=== PATIENT | female | born 1940 | race Caucasian/White ===

== ENCOUNTER 2024-07-25 07:41 | Emergency (ER) | payer OTHER, SELFPAY ==
[2024-07-25] VITALS (16 sets, daily range): BP systolic 139–187; BP diastolic 56–104; PULSE 53–72; RESP 12–22; TEMP 36.7; O2SAT 96–100
--- NOTE | ~2024-07-25 | XR_ITS ---
CHEST RADIOGRAPH CLINICAL HISTORY: cva? . COMPARISON: None available TECHNIQUE: Single portable view of the chest. FINDINGS The cardiomediastinal silhouette is unremarkable. The lungs are clear. Visualized osseous structures and soft tissues are unremarkable. IMPRESSION: No focal infiltrate or effusion. Reviewed, dictated and finalized at location A. [facility]
--- NOTE | ~2024-07-25 | CT_ITS ---
CTA brain carotid Ordering provider: Justin Engle MD History: . right sided weakness . Comparison: None. Technique: CT angiogram head and neck was performed following timed intravenous injection of contrast . Thin slice axial images and reformatted coronal images were obtained. Three dimensional reformatted images of the brain were also obtained using a [employer] workstation. DLP: 854 mGy-cm FINDINGS: HEAD: --ANTERIOR AND MIDDLE CEREBRAL ARTERIES AND BRANCHES: Normal caliber and contour. --INTERNAL CAROTID ARTERIES: Mild atheromatous disease but no significant stenosis. No occlusion. --BASILAR ARTERY AND BRANCHES: Normal caliber and contour. No significant atheromatous disease. 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 --ANEURYSM: None visualized. --BRAIN: Please refer to report of CT head performed the same day. --BONES AND SUPERFICIAL SOFT TISSUES: Please refer to report of CT head performed the same day. --PARANASAL SINUSES AND MASTOIDS: Please refer to report of CT head done the same day. NECK: --RIGHT CERVICAL CAROTID SYSTEM: Mild atheromatous disease of the carotid bulb and proximal internal carotid artery without significant stenosis. Percent stenosis per NASCET criteria is 0% No carotid d issection. --LEFT CERVICAL CAROTID SYSTEM: Mild atheromatous disease of the carotid bulb and proximal internal c arotid artery without significant stenosis. Percent stenosis per NASCET criteria is 0% No carotid di ssection. --VERTEBRAL ARTERIES: Normal caliber and contour. --VISUALIZED AORTIC ARCH AND BRANCHING VESSELS: Mild atheromatous disease but no significant stenosis . --SOFT TISSUES: Unremarkable. --CERVICAL SPINE: Age appropriate degenerative changes. IMPRESSION: 1. Normal CTA head and neck. Percent stenosis per NASCET criteria is 0%. 2. No large vessel occlusion. Reviewed, dictated and finalized at location A. [employer] DETECTIVE
--- NOTE | ~2024-07-25 | CT_ITS ---
History Right sided weakness PROCEDURE: CT head without contrast. COMPARISON: None TECHNIQUE: Axial imaging of the head performed from the skull base to the vertex without IV contrast. Sagittal a nd coronal reformations obtained. DLP: 605 mGy-cm FINDINGS: The ventricles are enlarged. The dilatation of the ventricles is proportional to the degree of sulcal prominence, not uncommon in the senescent brain. 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 There is no mass, mass effect or midline shift. There is no abnormal extra-axial fluid collection or intracranial hemorrhage. Visualized paranasal sinuses are clear. The mastoid air cells are well aerated. No acute displaced fractures within the overlying cranium. Impression: No acute intracranial hemorrhage or suspicious mass effect. Reviewed, dictated and finalized at location A. [employer] Impression: No acute intracranial hemorrhage or suspicious mass effect.
--- OUTSIDE RECORDS SUMMARY | 2024-07-25 07:44 | XMS_ITS | Continuity of Care Document ---
Author Organization [facility] Address [address] [place] [address] Phone Care Team Providers Care Project Associate Name Role Phone Peng Marks Unavailable Unavailable Procedures Procedure Date Eye Exam & Treatment Refraction Eye Exam & Treatment No Script Refraction Eye Exam & Treatment Refraction Eye Exam & Treatment Visual Functional Status Assessed Refraction Advance Directives Directive Yes / No Effective Date File Name No Information Encounters Encounter Description Practice Location Reason(s) For Visit Diagnoses Date Provider Providers Copied on Encounter [facility], [address] [place] [address] [address], [place], [place], [id number], tel:[phone] [facility] No Information Oct-0 8-201 0 Selina Khoury. [address] , [address], [place], [place], [facility], . tel:[phone] [facility], [id number] [place] [address] [address], [place], [place], [id number], [place] tel:[phone] [facility] No Information Feb-3 0-200 9 Selina Khoury. [address], [place], [place], [facility], . tel:[phone] [facility], [address], [place], [place], [id number], tel:[phone] [facility] [address] No Information 7200 8 Sarthakbruna Edjoel. [address] [facility] , [address], [place], [address], [place]. tel:[phone] [facility], [address], [place], [place], [id number], [place] tel:[phone] [facility] No Information 200 7 Selina Khoury. [address] [facility] , [address], [place], [address], [place]. tel:[phone] Family History Family Member Type Diagnosis Age At Onset No Information Payers Payer name Insurance type Covered libertarian ID Authoriza ticiro(s) Medicare [place] CI [id number] [facility] Medicare [facility] CI [id number] Social History Type Description Quantity Date Captured Comments Sex Female Smoking Status No Information Chief Complaint And Reason For Visit No Information Reason For Referral Reason For Referral No Information History Of Present Illness Encounter Date Complaint History Of Prese nt Illness No Information Functional Status Date Functional Assessmen t No Information Instructions Date Instruction Additional Infor mation No Information Assessments Type Assessment Date No Information Patient Care Teams Name Effective Dates (start - stop) Status Members No Information
--- OUTSIDE RECORDS SUMMARY | 2024-07-25 07:44 | XMS_ITS | Continuity of Care Document ---
Author Organization [facility] Address [address] [place] [address] Phone Care Team Providers Care Diamond Cleaver Name Role Phone Stanislaw Guzmán MD Unavailable Unavailable Allergies, Adverse Reactions, Alerts Substance Reaction Status Criticality primidone Active No Information Medications Medication Instructions Dosage Effective Dates (start - stop) Status Comments Propranolol HCl ER 160 MG Oral Capsule Extended Release 24 Hour Take 1 capsule by mouth once daily - Active Vitamin D3 25 mcg (1,000 unit) tablet take 1 tablet by oral route every day 1 tablet - Active propranolol ER 160 mg capsule,24 hr,extended release take 1 capsule by oral route every day 160 MG - No Longer Active Procedures Procedure Date FALL RISK ASSESSMENT DOC'D PRES/ABSN URINE INCON ASSESS Pt inelig neg scrn depres PPPS, subseq visit BODY MASS INDEX DOCD SYST BP LT 130 MM HG DIAST BP 80-89 MM HG FALL RISK ASSESSMENT DOC'D PRES/ABSN URINE INCON ASSESS Pt inelig neg scrn depres COMPREHEN METABOLIC PANEL CMP VITAMIN D, 25-HYDROXY ROUTINE VENIPUNCTURE PARATHYROID HORMONE (PTH) PPPS, subseq visit BODY MASS INDEX DOCD SYST BP GE 130 - 139MM HG DIAST BP 80-89 MM HG FALL RISK ASSESSMENT DOC'D PRES/ABSN URINE INCON ASSESS COMPREHEN METABOLIC PANEL CMP 2 VITAMIN D, 25-HYDROXY ROUTINE VENIPUNCTURE PPPS, subseq visit BODY MASS INDEX DOCD SYST BP GE 130 - 139MM HG DIAST BP 80-89 MM HG Pt inelig neg scrn depres FALL RISK ASSESSMENT DOC'D PRES/ABSN URINE INCON ASSESS Pt inelig neg scrn depres PPPS, subseq visit BODY MASS INDEX DOCD SYST BP GE 130 - 139MM HG DIAST BP < 80 MM HG FALL RISK ASSESSMENT DOC'D PRES/ABSN URINE INCON ASSESS CBC, INC PLATELETS AND DIFFERENTIAL COMPREHEN METABOLIC PANEL CMP 0 THYROID STIMULATION HORMONE(TSH) 2019 ROUTINE VENIPUNCTURE PPPS, subseq visit SYST BP GE 130 - 139MM HG DIAST BP 80-89 MM HG FALL PLAN OF CARE DOC'D URINE INCON PLAN DOC'D PRES/ABSN URINE INCON ASSESS Pt inelig neg scrn depres Admin influenza virus vac Flu Vac, quad (RIV4), Preservative And A ntibiotic Free IM OFFICE [id number] SYST BP GE 130 - 139MM HG DIAST BP >= 90 MM HG Advance Directives Directive Yes / No Effective Date File Name No Information Encounters Encounter Description Practice Location Reason(s) For Visit Diagnoses Date Provider Providers Copied on Encounter [employer] [facility] [employer], [address], [place], [place], [address] , [place] tel:[phone] [facility] No Information 5 Ramirez Dover. [address] [place] [address], [address], [place], [place], [address] , . tel: [phone] [facility], [address], [place], [place], [address] , tel: [phone] [facility] Presence of intraocular lens 4 Ramirez Dover. [address] [place] [address], [address], [place], [place], [address] , . tel: [phone] [facility], [address], [place], [place], [address] , tel: [phone] [facility] Medicare preventive (chief complaint)C hronic Conditions (chief complaint)c hronic conditions (chief complaint) Medicare annual wellness visit, subsequentStage 3a chronic kidney diseaseTremorBlurred visionEncounter for immunizationOther seborrheic keratosis 4 Ramirez Dover. [address] [place] [address], [address], [place], [place], [address] , . tel: [phone] Referring Provider: Stanislaw Guzmán, [address] [place] [address] [address], [place], [address] . tel:[phone] [facility], [address], [place], [place], [address] , tel: [phone] [facility] No Information 4 Ramirez Dover. [address] [place] [address], [address], [place], [place], [address] , . tel: [phone] [facility], [address], [place], [place], [address] , tel: [phone] [facility] Encounter for gynecological examination (general) (routine) without abnormal findings 4 Ramirez Dover. [address] [place] [address], [address], [place], [place], [address] , . tel: [phone] [facility], [address], [place], [address] , tel: [phone] [facility] No Information 4 Jac Orellana. [address] [place] [address], [address], [place], [place], [address] , . tel: [phone] [facility], [address], [place], [place], [address] , tel: [phone] [facility] Foreign body sensation, right eye 4 Ramirez Dover. [address] [place] [address], [address], [place], [place], [address] , . tel: [phone] [facility] [employer] [facility], [address], [place], [place], [address] , tel: [phone] [facility] Medicare preventive (chief complaint)C hronic Conditions (chief complaint)c hronic conditions (chief complaint) Medicare annual wellness visit, subsequentChronic kidney disease, stage 3aTremorOsteopenia, unspecified locationEncounter for immunization 3 Ramirez Dover. [address] [place] [address], [address], [place], [place], [address] , . tel: [phone] Referring Provider: Stanislaw Guzmán, [address] [place] [address] [address], [place], [address] . tel:[phone] [facility], [address], [place], [place], [address] , tel: [phone] [facility] Presence of intraocular lens 3 Ramirez Dover. [address] [place] [address], [address], [place], [place], [address] , . tel: [phone] [facility], [address], [place], [place], [address] , [place] tel: [phone] [facility] No Information 3 Ramirez Dover. [address] [place] [address], [address], [place], [place], [address] , . tel: [phone] [facility], [address], [place], [place], [address] , tel: [phone] [facility] No Information 3 Ramirez Dover. [address] [place] [address], [address], [place], [place], [address] , . tel: [phone] [facility], [address], [place], [address] , [place] tel: [phone] [facility] No Information 3 Ramirez Dover. [address] [place] [address], [address], [place], [place], [address] , [place]. tel: [phone] [facility], [address], [place], [address] , [place] tel: [phone] [facility] Encounter for gynecological examination (general) (routine) with abnormal findings 3 Ramirez Dover. [address] [place] [address], [address], [place], [place], [address] , [place]. tel: [phone] [facility], [address], [place], [place], [address] , [place] tel: [phone] [facility] Other seborrheic keratosis 3 Ramirez Dover. [address] [place] [address], [address], [place], [place], [address] , [place]. tel: [phone] [facility], [address], [place], [address] , [place] tel: [phone] [facility] No Information 2 Ramirez Dover. [address] [place] [address], [address], [place], [place], [address] , [place]. tel: [phone] [facility], [address], [place], [place], [address] , [place] tel: [phone] [facility] Medicare preventive (chief complaint)C hronic Conditions (chief complaint) Medicare annual wellness visit, subsequentTremorOste openia, unspecified location 2 Ramirez Dover. [address] [place] [address], [address], [place], [place], [address] , [place]. tel: [phone] Referring Provider: Stanislaw Guzmán, [address] [place] [address] [address], [place], [address] . tel:[phone] [facility], [address], [place], [place], [address] , [place] tel: [phone] [facility] No Information 2 Tropic Reyna. [address] [facility], [address], [place], [place], [address] , [place]. tel: [phone] [facility], [address], [place], [place], [address] , [place] tel: [phone] [facility] Pseudophakia 2 Ramirez Dover. [address] [place] [address], [address], [place], [place], [address] , [place]. tel: [phone] [facility], [address], [place], [address] , [place] tel: [phone] [facility] No Information 2 Jac Reyna. [address] [facility], [address], [place], [place], [address] , [place]. tel: [phone] [facility], [address], [place], [place], [address] , tel: [phone] [facility] No Information 2 Tropic Reyna. [address] [place] [address], [address], [place], [place], [address] , [place]. tel: [phone] [facility], [address], [place], [place], [address] , [place] tel: [phone] [facility] Tremor, unspecified 1 Ramirez Dover. [address] [place] [address], [address], [place], [place], [address] , . tel: [phone] [facility], [address], [place], [address] , [place] tel: [phone] [facility] Medicare preventive (chief complaint)C hronic Conditions (chief complaint) Medicare annual wellness visit, subsequentTremor 1 Ramirez Dover. [address] [place] [address], [address], [place], [place], [address] , . tel: [phone] Referring Provider: Stanislaw Guzmán, [address] [place] [address] [address], [place], [address] . tel:[phone] [facility], [address], [place], [address] , [place] tel: [phone] [facility] No Information 1 Ramirez Dover. [address] [place] [address], [address], [place], [place], [address] , . tel: [phone] [facility], [address], [place], [place], [address] , tel: [phone] [facility] Unspecified visual disturbance 1 Ramirez Dover. [address] [place] [address], [address], [place], [place], [address] , [place]. tel: [phone] [facility], [address], [place], [place], [address] , [place] tel: [phone] [facility] Other seborrheic keratosis 1 Ramirez Dover. [address] [place] [address], [address], [place], [place], [address] , . tel: [phone] [facility], [address], [place], [place], [address] , tel: [phone] [facility] Encounter for gynecological examination (general) (routine) without abnormal findings 1 Ramirez Dover. [address] [place] [address], [address], [place], [place], [address] , . tel: [phone] [facility], [address], [place], [address] , [place] tel: [phone] [facility] No Information 0 Ramirez Dover. [address] [place] [address], [address], [place], [address] , [place]. tel: [phone] [facility], [address], [place], [address] , [place] tel: [phone] [facility] Medicare preventive (chief complaint)C hronic Conditions (chief complaint) Medicare annual wellness visit, subsequentTremorPrim sandra osteoarthritis involving multiple joints 0 Ramirez Dover. [address] [place] [address], [address], [place], [place], [address] , . tel: [phone] Referring Provider: Stanislaw Guzmán, [address], [place], [address] [place] [address] . tel:[phone] OFFICE [id number] PANDED [facility], [address], [place], [place], [address] , tel: [phone] [facility] Chronic Conditions (chief complaint) TremorDiarrhea, unspecified typeEncounter for immunization 9 Ramirez Dover. [address] [place] [address], [address], [place], [place], [address] , . tel: [phone] Referring Provider: Stanislaw Guzmán, [address] [place] [address] [address], [place], [address] [place] [address] . tel:[phone] [facility], [address], [place], [place], [address] , tel: [phone] [facility] TremorBalance disorderVision changesEncounter for immunization 8 Ramirez Dover. [address] [place] [address], [address] , [place], [place], [address] , . tel: [phone] Referring Provider: Stanislaw Guzmán, [address] [place] [address] [address], [place], [address] [place] [address] . tel:[phone] [facility], [address], [place], [place], [address] , tel: [phone] [facility] Essential tremorAlopeciaDysuri aHyperlipidemia, unspecified hyperlipidemia type 7 Ramirez Dover. [address] [place] [address], [address], [place], [place], [address] , . tel: [phone] Referring Provider: Stanislaw Guzmán, [address] [place] [address] [address], [place], [address] [place] [address] . tel:[phone] [facility], [address], [place], [place], [address] , tel: [phone] [facility] Essential tremorOsteopenia Sep-0 5 Ramirez Dover. [address] [place] [address], [address], [place], [place], [address] , . tel: [phone] Referring Provider: Stanislaw Guzmán, [address] [place] [address] [address], [place], [address] [place] [address] . tel:[phone] [facility], [address], [place], [place], [address] , tel: [phone] [facility] No Information 4 Ramirez Dover. [address] [place] [address], [address] , [place], [address] [place] [address] , . tel: [phone] [facility], [address], [place], [address] [place] [address] , tel: [phone] [facility] Essential tremorOsteopeniaElev ated blood pressureBreast cancer screening 4 Ramirez Dover. [address] [place] [address], [address] , [place], [address] [place] [address] , . tel: [phone] Referring Provider: Stanislaw Guzmán, [address] [place] [address] [address] , [place], [address] [place] [address] . tel:[phone] [facility], [address], [place], [address] [place] [address] , tel: [phone] [facility] No Information 3 Ramirez Dover. [address] [place] [address], [address] , [place], [address] [place] [address] , . tel: [phone] [facility], [address], [place], [place], [address] , tel: [phone] [facility] Disorder of bone and cartilage, unspecifiedEssential and other specified forms of tremorElevated blood pressure 3 Ramirez Dover. [address] [place] [address], [address] , [place], [address] [place] [address] , . tel: [phone] Referring Provider: Stanislaw Guzmán, [address] [place] [address] [address] , [place], [address] [place] [address] . tel:[phone] Family History Family Member Type Diagnosis Age At Onset Father Problem (finding) malignant neoplasm of p ancreas Brother Problem (finding) Spina bifida Immunizations Vaccine Date Status Comments Fluzone High-Dose Trivalent, preservative free administered Note: aury Mahajan ce: Other Provider 15Five Comirnaty COVID vacci ne, petros-sucrose, 30mcg/0.3mL dose, 12 years and older administered Source: Other Provid er RSV (Beyfortus), monoclonal antibody, seasonal dose, 0.5mL dosage, neonates and children to 24 mos administered Source: Source Unspe cified Moderna Spikevax COVID Vacci ne, mRNALNP, 50 mcg/0.5 mL dose, 12+ years administered Source: Source Unspe cified Fluzone Quad, preservative free, split virus, 0.5mL dosage administered Source: Source Unspecified Pfizer (Bivalent Booster) CO VID Vac, 30mcg/0.3mL, 12+ years administered Source: Sour ce Unspecified Fluzone High-Dose, high dose , preservative free administered Note: Luisa SHETTY ; Source: Source Unspecified Pfizer (Diluent Reconstitute d) COVID19 Vaccine, 0.3mL per dose, 2 doses, administered 21 days apart administered Source: Source Unspe cified Flublok, quadrivalent, preservative free, 0.5mL dosage administered Source: Source Unspecified Pfizer (Diluent Reconstitute d) COVID19 Vaccine, 0.3mL per dose, 2 doses, administered 21 days apart administered Source: Source Unspe cified Pfizer (Diluent Reconstitute d) COVID19 Vaccine, 0.3mL per dose, 2 doses, administered 21 days apart administered Source: Source Unspe cified Pfizer (Diluent Reconstitute d) COVID19 Vaccine, 0.3mL per dose, 2 doses, administered 21 days apart administered Source: Source Unspe cified Fluzone High-Dose, high dose , preservative free administered Source: Source Unspe cified Flublok, quadrivalent, preservative free, 0.5mL dosage administered Source: New Immunization Record Pneumococcal conjugate PCV 13 administere d Source: New Immunization Record Fluzone High-Dose, high dose , preservative free administered Source: Source Unspe cified Influenza, seasonal, injecta ble (3 yrs or older) administered Source: New Immuniza tion Record Pneumococcal polysaccharide PPV23 administered Source: New Immuniza tion Record Influenza, seasonal, injecta ble (3 yrs or older) administered Note: Invalid docume nted admin date was //2013. ; Source: Other Provider flu (split) (3 yrs or older) administered Source: New Immunization Record Payers Payer name Insurance type Covered republican ID Authoriza tion(s) [employer] [id number] MEDICARE MB [id number] AARP MDCR SUPPLEMENT ONLY CI [id number] MEDICARE MB [id number] AARP MDCR SUPPLEMENT ONLY CI [id number] MEDICARE MB [id number] AARP MDCR SUPPLEMENT ONLY CI [id number] MEDICARE MB [id number] AARP MDCR SUPPLEMENT ONLY CI [id number] Social History Type Description Quantity Date Captured Comments Sex Female Smoking Status No Information Chief Complaint And Reason For Visit No Information Reason For Referral Reason For Referral No Information Plan Of Treatment Date Type Action Status Referral Referred To: Zaira Mcdowell [address] [facility]
[id number] [place], [place], [phone] Ordered: Referrals: Obstetrics and Gynecology. Zaira Mcdowell. Evaluation/diagnostic/treatment - Level 3 Appointment date/timeframe: 04/22/2024 ordered Referral Referred To: Julieta Dean MD [address] [facility] [phone] Ordered: Referrals: Corporate Responsibility Officer. Julieta Dean MD. Evaluation/diagnostic/treatment - Level 3 Appointment date/timeframe: 11/17/2023 ordered Referral Referred To: Merissa Crocker [address] [place], [phone] Ordered: Referrals: Ophthalmology. Merissa Crocker. Evaluation/diagnostic/treatment - Level 3 Appointment date/timeframe: 04/28/2023 ordered Referral Referred To: Jojo Siddiqui MD Ordered: Referrals: Gynecology. Jojo Siddiqui MD. Evaluation/diagnostic/treatment - Level 3 Appointment date/timeframe: 12/04/2022 ordered Referral Referred To: Celia Arenas [address] [place], [phone] Ordered: Referrals: Neurology. Celia Arenas. Evaluation/diagnostic/treatment - Level 3 Appointment date/timeframe: 04/30/2021 ordered Referral Referred To: Gennaro Meng [address] [place], [place], [phone] Ordered: Referrals: Ophthalmology. Gennaro Meng. Evaluation/diagnostic/treatment - Level 3 Appointment date/timeframe: 02/08/2021 ordered Referral Referred To: Beth Villafana [address]
[facility] [place], [phone] Ordered: Referrals: Dermatology. Beth Villafana. Evaluation/diagnostic/treatment - Level 3 Appointment date/timeframe: 01/30/2021 ordered Referral Referred To: Alana Souza [address]
[id number] [place], [place], [phone] Ordered: Referrals: Obstetrics and Gynecology. Alana Souza. Evaluation/diagnostic/treatment - Level 3 Appointment date/timeframe: 11/17/2020 ordered Appointment Renee Lamar BOOKED History Of Present Illness Encounter Date Complaint History Of Prese nt Illness chronic conditions *See Chronic Conditions HPI Chronic Conditions *See Chronic Conditions HPI Medicare preventive The patient has not felt depressed and has had interest and pleasure doing things recently. Functional Status: (Functional status has not changed) on 05/04/2024. Cognitive Status: (Cognitive status has not changed) on 05/04/2024. The ''Up and Go'' test took less than 30 seconds andthe patient does not need help with activities of daily living. The patient is at risk for falls. The patient has not fallen in the last year. The fall(s) did not result in injury. Patient's activity level is moderate. Patient exercises 2-3 times/week. The patient has smoke detectors in the home. Patient reports using a seatbelt in vehicles. Relevant history is negative for tobacco use. chronic conditions *See Chronic Conditions HPI Chronic Conditions *See Chronic Conditions HPI Medicare preventive The patient has not felt depressed and has had interest and pleasure doing things recently. Functional Status: (Functional status has not changed) on 04/30/2023. Cognitive Status: (Cognitive status has not changed) on 04/30/2023. The ''Up and Go'' test took less than 30 seconds andthe patient does not need help with activities of daily living. The patient is at risk for falls. The patient has not fallen in the last year. The fall(s) did not result in injury. Patient's activity level is moderate. Patient exercises 2-3 times/week. The patient has smoke detectors in the home. Patient reports using a seatbelt in vehicles. Relevant history is negative for tobacco use. Chronic Conditions *See Chronic Conditions HPI Medicare preventive The patient has not felt depressed and has had interest and pleasure doing things recently. Functional Status: (Functional status has not changed) on 04/24/2022. Cognitive Status: (Cognitive status has not changed) on 04/24/2022. The ''Up and Go'' test took less than 30 seconds andthe patient does not need help with activities of daily living. The patient is at risk for falls. The patient has not fallen in the last year. The fall(s) did not result in injury. Patient's activity level is moderate. Patient exercises 2-3 times/week. The patient has smoke detectors in the home. Patient reports using a seatbelt in vehicles. Relevant history is negative for tobacco use. Medicare preventive The patient has not felt depressed and has had interest and pleasure doing things recently. Functional Status: (Functional status has not changed) on 04/23/2021. Cognitive Status: (Cognitive status has not changed) on 04/23/2021. The ''Up and Go'' test took less than 30 seconds and the patient does not need help with activities of daily living. The patient is at risk for falls. The patient has not fallen in the last year. The fall(s) did not result in injury. Patient's activity level is moderate. Patient exercises 2-3 times/week. The patient has smoke detectors in the home. Patient reports using a seatbelt in vehicles. Patient reports recent weight loss. Relevant history is negative for tobacco use. Chronic Conditions *See Chronic Conditions HPI Medicare preventive The patient has not felt depressed and has had interest and pleasure doing things recently. Functional Status: (Functional status has not changed) on 03/30/2020. Cognitive Status: (Cognitive status has not changed) on 03/30/2020. The ''Up and Go'' test took less than 30 seconds and the patient does not need help with activities of daily living. The patient is not at risk for falls. The patient has not fallen in the last year. The fall(s) did not result in injury. Patient's activity level is moderate. Patient exercises 2-3 times/week. Chronic Conditions *See Chronic Conditions HPI Chronic Conditions *See Chronic Conditions HPI Functional Status Date Functional Assessmen t No Information Instructions Date Instruction Additional Infor mation Get the Shingrix. Related to Enc ounter for immunization Continue current med ications for now. Related to Tremor No new recommendations. Related to Blurred vision Labs next time. Related to Stage 3a chronic kidney disease Get appropriate vacc cindy. Return 1 year Related to Medicare annual wellness visit, subsequent Disease process Get Shingrix. Related to Encou nter for immunization Recheck level. Related to Osteo penia, unspecified location Check CMP and PTH. Related to Ch ronic kidney disease, stage 3a Continue current med ications for now. Related to Tremor Get appropriate vacc cindy. Return 1 year Related to Medicare annual wellness visit, subsequent Disease process Continue medications at current dose/regimen and check CMP. Related to Tremor Check Vitamin D. Related to Oste openia, unspecified location Get appropriate vacc cindy. Return 1 year Related to Medicare annual wellness visit, subsequent Disease process F/u with neurology. Related to T remor Get appropriate vaccines. Relate d to Medicare annual wellness visit, subsequent Disease process Urinary Incontinence Fall Risk Prevention No new recommendations. 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 Related to Tremor Get appropriate vaccines. Relate d to Medicare annual wellness visit, subsequent Disease process Counseled on weight reduction Fall Risk Prevention Urinary Incontinence Counseled on dietary changes I do not think it is due to the betablocker, monitor and call if persists. Related to Diarrhea, unspecified type Advised she can incr ease her propranolol anytime she wants. Related to Tremor Fall Risk Prevention Disease process Urinary Incontinence Assessments Type Assessment Date No Information Patient Care Teams Name Effective Dates (start - stop) Status Members No Information
--- OUTSIDE RECORDS SUMMARY | 2024-07-25 07:44 | XMS_ITS | Clinical Summary ---
Author Organization [facility] Address [address] [place] [address] Care Team Providers Care Parcel Post Delivery Name Role Phone Stanislaw Guzmán MD Primary Care Provider [phone] Allergies No known active allergies Medications propranolol LA (INDERAL LA) 160 mg 24 hr capsule 01/16/2020 Active multivitamin capsule Take 1 capsule by mouth daily Active Active Problems Problem Noted Date Diagnosed Date Foreign body sensation, right eye 11/17/2023 Assessment & Plan (11/17/2023 9:30 AM CDT): Pt presents for unplanned vision today w/ c/o FBS OD since gardening yesterday. Stable PH VA today, no FB or abrasion on exam. Mild blepharitis + conjunctivochalasis likely cause of symptoms. Pt is unable to use eye drops due to her tremor + she lives alone. Rx'd maxitrol victor m for use qhs (more frequently prn however advised pt it will blur her vision), for 4 days. F/u w/ Dr. Crocker 05/17/24 as scheduled, sooner prn. Breast pain 12/04/2022 Assessment & Plan (12/04/2022 12:02 PM CDT): Order placed for diagnostic breast imaging. 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 Renee Lamar is a 81 y.o. female, who presents for follow-up for essential tremor (ET). 1. ET. She is about the same since the last visit. Hand and head tremor are about the same and she may have a bit more of voice tremor. She tried primidone with her PCP and it caused significant balance problems. Despite some trouble with feeding and mild challenges with the voice, she does not think the tremor limits her in any ways. She is not interested in any brain surgery . We talked about an evaluation with OT for weighted utensils, but she opted not to do it now. She also opted to follow- up on a as needed basis. - Continue propranolol LA at the current dose. - She opted to participate in the study of genetics in movement disorders. Potential medication side effects were discussed during the encounter. Assessment & Plan (04/28/2020 2:40 PM KNOCKUP WORKER): Ms. Renee Lamar is a 80 y.o. female, who presents for evaluation of ET. She developed head and hand tremor twenty years ago. She later developed voice and facial tremor. Currently, she is embarrassed by the tremor, but able to function without problems. She had an initial good response to propranolol and more recently tried primidone, which rendered significant sedation. She does not have family history of tremor. On examination, her heart rate is 60 and there is predominant postural and kinetic tremor in the hands, as well as head, voice and facial tremor. There were no signs of parkinsonism. History and examination are compatible with ET. We discussed disease pathophysiology and treatment strategies for ET. She was pleased to hear that she did not have any signs of Parkinson's disease. Dose adjustment of propranolol is not indicated due to low HR. We talked about other medication strategies and she opted to not to try other medications now, since she is following social isolation protocols. Plan: - Continue propranolol LA 160 mg daily. --- May consider adding gabapentin 100 mg with weekly titration to 3 capsules at bedtime. Potential medication side effects were discussed during the encounter. Pseudophakia of both eyes 11/19/2018 Assessment & Plan (03/14/2022 11:58 AM CDT): Stable OU RTC 1 yr w/DFE Assessment & Plan (02/08/2021 11:08 AM CDT): Stable OU RTC 1 yr w/DFE Assessment & Plan (02/08/2020 11:11 AM CDT): Annual f/u after CE/IOL OU Uncorrected near vision OD : J1 Dist VA OS: 20/20 Pt likes her monovision and wearing NO glasses RTC 1 year Assessment & Plan (02/02/2019 3:45 PM CDT): Five week status post cataract extraction lens implantation in the right eye Uncorrected near vision OD : J1 MRx OD today: 20/20 (-100 +0.50 x 180) Pt likes her monovision and wearing NO glasses (no MRx given) RTC 1 year Assessment & Plan (12/29/2018 3:44 PM CDT): 6d s/p CE/IOL OD Doing well w/ph distance VA 20/30 And near sc 20/30 Reassured on 1 month healing / possible suture removal and goal of possible monovision (near OD and distance OS} Discontinue Ocuflox Continue prednisolone acetate OD q.i.d. Continue Ketolorac OD q.i.d. RTC 1 month with clemente OD Assessment & Plan (12/29/2018 3:45 PM CDT): 1day CE/IOL OD (12/24/18) Doing well Start ofloxacin q.i.d. OD Start prednisolone acetate OD q.i.d. Start Ketolorac OD q.i.d. RTC 1wk Assessment & Plan (12/15/2018 3:32 PM CDT): Doing well Assessment & Plan (11/26/2018 1:26 PM CDT): POW#1 sp phaco/IOL left eye (OS) -doing well -cont oflox and ket QID X 1 week then stop -cont pred QID X 1 week, TID X 1 week, BID X 1 week, every day (QD) X 1 week then stop -okay to stop shield -RTC as scheduled for cataract extraction (CE) right eye (OD) or herb with decrease in vision or eye pain Assessment & Plan (11/19/2018 9:40 AM CDT): POD#1 status post (s/p) complex phaco/IOL with mal ring -doing well -cont shield at bedtime X 1 week; no heavy lifting or bending over; do not rub eye -use pred, ket and oflox QID left eye (OS) -can use refresh art tears up to QID left eye (OS) for irritation/scratchy feeling -RTC 1 week or herb with pain or decrease in vision Angioma 11/04/2017 Seborrheic keratoses 11/04/2017 Unspecified urinary incontinence 05/28/2016 Resolved Problems Problem Noted Date Diagnosed Date Resolved Date Nuclear sclerotic cataract of right eye 11/25/2018 12/24/2018 Overview (12/21/2018): Added automatically from request for surgery [id number] Nuclear sclerotic cataract of right eye 10/13/2018 12/15/2018 Overview (10/13/2018): Added automatically from request for surgery [id number] Assessment & Plan (12/15/2018 3:21 PM CDT): REC: CE/IOL OD Risks, benefits, and alternatives of surgery discussed in detail with patient including but not limited to infection, bleeding, persistent inflammation, pain, diplopia, ptosis, need for further visits and surgeries, need for spectacle or contact lens correction after surgery, possible loss of vision, possible loss of the eye, and risks of anesthesia. Also discussed reduction risk of blindness with the use suture and a more extended postoperative recovery for final glasses in comparison with her previous surgery with Dr. Simon The patient understands these risks and wishes to proceed. Age-related nuclear cataract of both eyes 03/09/2018 12/15/2018 Overview (03/09/2018): Age-related nuclear cataract of eye, bilateral - (Added by YADY Conv) Assessment & Plan (03/09/2018 3:00 PM CDT): Significant and symptomatic combined cataract right : Discussed observation vs cataract removal and intraocular lens (IOL) implantation. Discussed risks of surgery all the way from endophthalmitis to loss of vision and loss of eye. Also discussed about intraocular lens (IOL) options: mono vs multifocal (discussed photopsia, need to for intraocular lens (IOL) exchange in ). Pt agreed with cataract extraction (CE)/monofocal intraocular lens (IOL) -. Patient defers surgery until 11/2018; dispensed MRX today. We provided our surgery coordinator's phone number to hold a date for surgery, and we will plan to see her back once more for final check prior to surgery. ASCAN done 04/2016. Encounters Date Type Department Care Team Description 05/17/2024 10:15 AM KNOCKUP WORKER Office Visit [facility] Ophthalmology [address] [place] [address] [place] [address] [phone] Merissa Crocker MD PhD Pseudophakia of both eyes 05/17/2024 Telephone [facility] Ophthalmology [address] [place] [address] [phone] Dionisio Flannery, B.A. 05/11/2024 11:00 AM KNOCKUP WORKER Office Visit [facility] Dermatology [address] [place] [address] [address] [place] [phone] Beth Villafana MD Lentigines (Primary Dx); Other seborrheic keratosis; Figueroa angioma from Last 3 Months Surgical History Surgery Date Site/Laterality Comments HYSTERECTOMY W/ BILATERAL SALPINGOOPHORECTOMY Laparoscopy With Total Hysterectomy With Bilateral Salpingo-Oophorectomy - (Added by YADY Conv) BREAST LUMPECTOMY x2 DILATION AND CURETTAGE OF UTERUS CATARACT EXTRACTION Medical History Medical History Date Comments Personal history of diseases of skin or subcutaneous tissue History of seborrheic kerato sis - (Added by YADY Conv) Other specified follicular disorders Sebaceous hyperplasia - (Added by TW Conv) Other hypertrophic disorders of the skin Acrochordon - (Added by TW Conv) Hemangioma of skin and subcu taneous tissue Angioma of skin - (Added by TW Conv) Xerosis cutis Xerosis cutis - (Added by TW Conv) Personal history of diseases of skin or subcutaneous tissue History of lentigo - (Added by TW Conv) Melanocytic nevi of lower ex tremity or hip Melanocytic nevus of lower e xtremity - (Added by TW Conv) Arcus senilis of right eye Corne al dellen of right eye - (Added by TW Conv) Age-related nuclear cataract of both eyes Age-related nuclear cataract of eye, bilateral - (Added by TW Conv) PONV (postoperative nausea and vomiting) Family History Medical History Relation Name Comments Pancreatic cancer Father Family his tory of malignant neoplasm of pancreas - (Added by Conv) She was at the time Mother Heart disease Son 1 No Known Problems Son 2 Parkinsonism Neg Hx Tremor Neg Hx Relation Name Status Comments Brother Father Mother Son 1 Son 2 Alive Social History Tobacco Use Types Packs/Day Years Used Date Smoking Tobacco: Former Cigarettes Q uit: 11/06/1962 Smokeless Tobacco: Never Tobacco Cessation:Counseling Given: Not Answered Alcohol Use Standard Drinks/Week Comments Never 0 (1 standard drink = 0.6 oz pure alcohol) Had champaign at wedding in 1961 AUDIT-C Answer Date Recorded Frequency of Alcohol Consumption Never 11/06/2018 Average Number of Drinks Not on file 019 Frequency of Binge Drinking Not on file 10/09 Comments No Sex and Gender Information Value Date Recorded Sex Assigned at Not on file Legal Sex Female 4:01 AM KNOCKUP WORKER Gender Identity Female 04/22/2020 11:26 AM KNOCKUP WORKER Sexual Orientation Not on file Occupation Industry Job Start Date Job End Date Retire Not on file Not on file Not on file Obstetrics History Para Term AB IAB SAB Ectopic Multiple Livin g Live Births 2 2 2 2 2 Date Outcome GA Total Labor Labor/2nd/3rd Weight Sex Type Anes PTL Shameka A1 A5 Name Clin 1963 Term M Vag-S pont N Living Complications:None 1965 Term M Vag-S pont N Living Last Filed Vital Signs Vital Sign Reading Time Taken Comments Blood Pressure 193/80 04/22/2024 8:49 AM KNOCKUP WORKER Pulse 68 12/04/2022 10:21 AM CDT Temperature 36.6 C (97.9 F) 04/30/2021 10:02 AM KNOCKUP WORKER Respiratory Rate 14 12/23/2018 3:40 PM CDT Oxygen Saturation 98% 12/23/2018 3:55 PM CDT Inhaled Oxygen Concentration - - Weight 57.1 kg (125 lb 12.8 oz) 04/22/2024 8:49 AM KNOCKUP WORKER Height 154.9 cm (5' 1 ) 04/22/2024 8:49 AM KNOCKUP WORKER Body Mass Index 23.77 04/22/2024 8:49 AM KNOCKUP WORKER Plan of Treatment Health Maintenance Due Date Last Done Comments Fall Risk Assessment 1940 Osteoporosis Screening-Bone Density Scan 1940 DTaP/Tdap/Td Vaccine (1 - Tdap) 01/03/1951 Hepatitis B Screening 01/03/1958 Zoster Vaccine (1 of 2) 01/03/1990 Pneumococcal vaccine 65+ (1 of 1 - PCV) 01/03/2005 Depression Screening 04/27/2021 04/27/2020 Well Visit 65+ 04/22/2025 04/22/2024, 11/20/2020 Influenza Vaccine Completed 04/12/2024, , 03/29/2019, Additional history exists Medical Devices Implanted Type Area Batch Still Operator Device Identifier Shelf Expiration Date Model / Serial / Lot [employer] [id number] 21.0 Tecnis Optiedge 6mm 13mm 3 Piece Anterior Aspheric Monofocal Uv - [id number] - [id number] Implanted:Qty: 1 on 11/18/2018 by Shahbaz Hernandez MD at [facility] Lens Left: Eye [employer] [id number] 04/26/2021 [id number] 21.0 / [id number] / 0 [employer] Sa60at.225 Acrysof Stableforce 6mm 13mm 1 Piece Foldable Anterior Asymmetric - [id number] - [id number] Implanted:Qty: 1 on 12/23/2018 by Gennaro Meng MD at [facility] Right: Eye [employer] [id number] 04/08/2020 SA60AT.22 / [id number] / Insurance [facility] Member Subscriber Plan / Payer (Ef fective 2020-Present) Name:Lamar, Lyn Relation to Subscriber:Self Name:Renee Lamar Payer ID:[id number] (NAIC) Type:MEDICARE RISK OTHER Address: [address] [place] [id number] Care Teams Parcel Post Delivery Relationship Specialty Start Date [place]law Guzm[place] [address] [place] [id number] [place] [address] PCP - General Internal Medicine 11/22/22
--- OUTSIDE RECORDS SUMMARY | 2024-07-25 07:44 | XMS_ITS | Referral Summary ---
Author Organization [facility] Address [address] [place] [address] Care Team Providers Care Level Vial Inspector And Tester Name Role Phone Stanislaw Guzámn MD Primary Care Provider Encounters Date Type Department Care Team Description 05/17/2024 Telephone [facility] Ophthalmology [address] [place] [address] [phone] Dionisio Flannery BEber 05/17/2024 10:15 AM FIELD SERVICE COORDINATOR Office Visit [facility] Ophthalmology [address] [place] [address] [phone] Merissa Crocker MD PhD Pseudophakia of both eyes 05/11/2024 11:00 AM FIELD SERVICE COORDINATOR Office Visit [facility] Dermatology [address] [place] [address] [place] [phone] Beth Villafana MD Lentigines (Primary Dx); Other seborrheic keratosis; Figueroa angioma from Last 3 Months Allergies No known active allergies Medications propranolol [...] 04/28/2020 Assessment & Plan (04/30/2021 10:41 AM FIELD SERVICE COORDINATOR): Ms. Renee Lamar is a 81 y.o. [...] encounter. Assessment & Plan (04/28/2020 2:40 PM FIELD SERVICE COORDINATOR): Ms. Renee Lamar is a 80 y.o. [...] (12/21/2018): Added automatically from request for surgery [id number] Nuclear sclerotic cataract of right eye 10/13/2018 12/15/2018 Overview (10/13/2018): Added automatically from request for surgery [id number] Assessment & Plan (12/15/2018 3:21 PM CDT): [...] eye, bilateral - (Added by TW Conv) Assessment & Plan (03/09/2018 3:00 PM [...] check prior to surgery. ASCAN done 04/2016. Social History Tobacco Use Types Packs/Day Years [...] on file Legal Sex Female 4:01 AM FIELD SERVICE COORDINATOR Gender Identity Female 04/22/2020 11:26 AM FIELD SERVICE COORDINATOR Sexual Orientation Not on file Occupation Industry Job Start Date Job End Date Retire Not on file Not on file Not on file Last Filed Vital Signs Vital Sign Reading Time Taken Comments Blood Pressure 193/80 04/22/2024 8:49 AM FIELD SERVICE COORDINATOR Pulse 68 12/04/2022 10:21 AM CDT Temperature 36.6 C (97.9 F) 04/30/2021 10:02 AM FIELD SERVICE COORDINATOR Respiratory Rate 14 12/23/2018 3:40 PM CDT Oxygen Saturation 98% 12/23/2018 3:55 PM CDT Inhaled Oxygen Concentration - - Weight 57.1 kg (125 lb 12.8 oz) 04/22/2024 8:49 AM FIELD SERVICE COORDINATOR Height 154.9 cm (5' 1 ) 04/22/2024 8:49 AM FIELD SERVICE COORDINATOR Body Mass Index 23.77 04/22/2024 8:49 AM FIELD SERVICE COORDINATOR Plan of Treatment Not on file Medical Devices Implanted Type Area Accounts Payable Supervisor Device Identifier Shelf Expiration Date Model / Serial / Lot [employer] [id number] 21.0 Tecnis Optiedge 6mm 13mm 3 Piece Anterior Aspheric Monofocal Uv - [id number] - [id number] Implanted:Qty: 1 on 11/18/2018 by Shahbaz Hernandez MD at [facility] Lens Left: Eye [employer] [id number] 04/26/2021 [id number] 21.0 / [id number] 1 / 0 [employer] Sa60at.225 Acrysof Stableforce 6mm 13mm 1 Piece Foldable Anterior Asymmetric - [id number] - [id number] Implanted:Qty: 1 on 12/23/2018 by Gennaro Meng MD at [facility] Right: Eye [employer] [id number] 04/08/2020 SA60AT.22 5 / [id number] / Insurance [facility] Care Teams Level Vial Inspector And Tester Relationship Specialty Start Date [place] Stanislaw Guzm[place] [address] [address] PCP - General Internal Medicine 11/22/22
--- NOTE | 2024-07-25 07:45 | ECG_ITS ---
Test Date: 2024-07-25 08:12:50 Measurements Intervals [place] Rate: 52 P: 52 IL: 215 QRS: 69 QRSD: 94 T: 73 QT: 451 QTc: 420 Interpretive Statements SINUS BRADYCARDIA WITH FIRST DEGREE AV BLOCK BORDERLINE ST ABNORMALITY- ANTEROLAT/INF LEADS BASELINE ARTIFACT- V3-V6 BORDERLINE ECG No previous ECG available for comparison Electronically Signed On 07-25-2024 08:14:31 GLOST KILN OPERATOR by Kaleb Underwood D.O.
--- NOTE | 2024-07-25 07:53 | ED.NEUROSD ---
HPI - Neuro Symptoms/Deficit General Chief Complaint: Suspected CVA Stated Complaint: lost control right arm Time Seen by Provider: 07/25/24 07:47 History of Present Illness HPI Narrative: Patient is an 84-year-old female who presents ER with concerns for CVA. Last known well was 10:00 p.m. last night. She woke up this morning around 6:00 a.m. and realized that she cannot use her right arm correctly and was having difficulty walking. She is still able to ambulate. She has history of essential tremor and takes propanolol. She has significant weakness of the right arm and the right leg. She has no sensation deficit. She reports no other abnormalities. No history of CVA. No history of anti-platelet usage or blood thinning medication. Related Data Home Medications ?Medication ?Instructions ?Recorded ?Confirmed ?Last Taken ?Type propranolol 160 mg capsule,24 160 mg PO Q24H 07/25/24 07/25/24 07/24/24 History hr,extended release Allergies Allergy/AdvReac Type Severity Reaction Status Date / Time No Known Allergies Allergy Verified 07/25/24 08:07 Review of Systems Review of Systems: All systems reviewed & are unremarkable except as noted in HPI and below Constitutional: Constitutional: Reports no additional constitutional complaints Cardiovascular: Cardiovascular: Reports no additional cardiovascular complaints Respiratory: Respiratory: Reports no additional respiratory complaints Gastrointestinal: Gastrointestinal: Reports no additional gastrointestinal complaints Neurologic: Reports lack of coordination, Reports focal weakness, Denies numbness, Denies Sensory deficit (Neuro) and Reports tremor(s) PMFSH Past Medical History Medical History (Updated 07/25/24 @ 10:40 by Justin Engle MD) Essential tremor Surgical History Surgical History (Updated 07/25/24 @ 08:01 by Justin Engle MD) History of lumpectomy 3x benign mass History of hysterectomy Exam Narrative: GENERAL: Well-appearing, well-nourished, and in no acute distress. HEAD: Normocephalic, atraumatic. EYES: PERRL and EOMI. ENT: Mucous membranes moist. CHEST: Clear to auscultation. No respiratory distress. HEART: Regular rate and rhythm. Normal peripheral pulses. ABDOMEN: Soft, nontender, nondistended. EXTREMITIES: Normal range of motion. No edema. SKIN: Warm, dry, no rash. NEURO: Bilateral upper extremity drift, right lower extremity drift, difficulty with finger-nose testing in the right upper extremity, no sensory deficit, see NIH stroke scale. Alert and oriented x3. PSYCH: Normal mood and affect. Course Course Emergency Course: 933: Patient feels like her right arm is little weaker however on re-evaluation her stroke scale is down to 2 and she has less drift in her right upper extremity even though it is still weak. No longer has drift in left upper extremity and her right lower extremity is very strong. Patient was just able to walk back from the bathroom while leaning towards the right. She did receive hydralazine. 0949: Patient now has dysarthria and cannot form words and her extremity exam is stays the same. We are contacting [facility] stroke team and pushing images. NIHSS 4 due to language issue. 0952: [facility] getting Stroke Doc. 0958: Spoke with Dr. Brown with Neurology, appropriate distributive stroke network. Speech back to normal but now with AMS. 1037: Discussed with Neurology at [facility], recommends permissive HTN for 24-48hr and only treat SBP >220 or DBP>120. Load with Plavix 300mg and ASA 325mg, then plavix 75mg and ASA 81mg daily. Accepted by Dr. Lee with the hospitalist service. Vital Signs Vital signs: Vital Signs Pulse Rate 63 07/25/24 07:42 Respiratory Rate 16 07/25/24 07:42 Blood Pressure 147/64 H 07/25/24 07:42 Pulse Oximetry 98 07/25/24 07:42 Temperature 98.0 F 07/25/24 11:21 Pulse Rate 62 07/25/24 11:21 Respiratory Rate 14 07/25/24 11:21 Blood Pressure 147/64 H 07/25/24 11:21 Pulse Oximetry 100 07/25/24 11:21 Oxygen Delivery Room Air 07/25/24 07:57 MDM - Neuro Symptoms/Deficit Lab Data 07/25/24 08:09 07/25/24 08:09 Labs: Lab Results 07/25/24 07/25/24 07/25/24 Range/Units 08:00 08:09 09:53 WBC 6.9 (4.5-10.0) K/mm3 RBC 4.93 (4.2-5.4) M/mm3 Hgb 13.9 (12.0-15.0) g/dL Hct 42.9 (37.0-47.0) % MCV 87.0 (80-100) fl MCH 28.2 (26-34) pg MCHC 32.4 (32-36) g/dl RDW 14.3 (11.5-14.5) % Plt Count 192 (150-375) k/mm3 MPV 11.1 H (7.4-10.4) fl Immature Gran % (Auto) 0.1 (0-0.5) % Neut % (Auto) 61.9 (45.5-73.1) % Lymph % (Auto) 27.6 (18.3-44.2) % Pepin % (Auto) 6.7 (2.6-8.5) % Eos % (Auto) 2.8 (0-4.4) % Baso % (Auto) 0.9 (0.2-1.2) % Lymph # (Auto) 1.90 (0.9-3.2) K/mm3 Pepin # (Auto) 0.5 (0.1-0.6) K/mm3 Eos # (Auto) 0.2 (0-0.3) K/mm3 Baso # (Auto) 0.1 (0.0-0.1) K/mm3 Abs Immat Gran (auto) 0.01 (0.00-0.031) K/mm3 Absolute Neuts (auto) 4.3 (1.3-6.7) K/mm3 Absolute Nucleated RBC 0.000 (0.0-0.012) K/mm3 Nucleated RBC % 0.0 (0.0-0.2) % PT 13.2 (11.1-14.7) Seconds INR 1.0 APTT 27.0 (22.3-36.8) Seconds Sodium 138 (137-145) mmol/L Potassium 4.2 (3.4-5.0) mmol/L Chloride 103 (98-107) mmol/L Carbon Dioxide 28 (22-30) mmol/L Anion Gap 7 (4-12) mmol/L BUN 20 H (7-17) mg/dL Creatinine 1.04 H (0.7-1.0) mg/dL Estim Creat Clear Calc 28 ml/min Estimated GFR 50 L (59 - ) Glucose 108 (65-110) mg/dL POC Capillary Glucose 100 99 (65-105) mg/dl Calcium 9.3 (8.4-10.2) mg/dL Total Bilirubin 0.7 (0.2-1.3) mg/dL AST 27 (14-36) U/L ALT 17 (6-35) U/L Alkaline Phosphatase 66 (38-126) U/L Troponin I < 0.012 (0.000-0.034) ng/mL Total Protein 7.0 (6.3-8.2) g/dL Albumin 4.2 (3.5-5.1) g/dL Imaging Data Radiologist's impression: ITS Impressions Chest X-Ray 07/25/24 07:59 IMPRESSION: No focal infiltrate or effusion. Head CT 07/25/24 09:06 Impression: No acute intracranial hemorrhage or suspicious mass effect. Head/Neck CTA 07/25/24 09:07 IMPRESSION: 1. Normal CTA head and neck. Percent stenosis per NASCET criteria is 0%. 2. No large vessel occlusion. ECG Data EKG #1: ECG completion date: 07/25/24 ECG completion time: 08:12 EKG Interpretation: bradycardia (52), sinus rhythm, no ectopy, non-specific ST changes, normal QRS, normal QT and NL axis Critical Care Time Critical Care Time Critical Care Time: Yes Total Critical Care Time: 45 Discharge Plan Discharge Clinical Impression: Acute ischemic stroke Patient Disposition: Acute Care Hospital Condition: Stable Patient Language: Sinhala Prescriptions: No Action propranolol 160 mg capsule,extended release 24 hr 160 mg PO Q24H Follow-up/Referrals: PHYSICIAN NOT ON STAFF,NONSTAFF [Non-Staff] - Quality Stroke Date of last known normal: 07/24/24 Time of last known normal: 22:00 Stroke Scale Stroke Scale 1: Stroke scale date:: 07/25/24 Stroke scale time:: 07:54 1a Level of consciousness: alert-0 1b Level of consciousness questions: answers both correctly-0 1c Level of consciousness commands: obeys both correctly-0 2 Best gaze: normal-0 3 Visual: no visual loss-0 4 Facial palsy: normal-0 5a Motor: left arm: drift-1 5b Motor: right arm: drift-1 6a Motor: left leg: no drift-0 6b Motor: right leg: drift-1 7 Limb ataxia: present in one limb-1 8 Sensory: normal-0 9 Best language: no aphasia-0 10 Dysarthria: normal-0 11 Extinction and inattention: no abnormality-0 Level:: 4 Stroke Scale 2: Stroke scale date:: 07/25/24 Stroke scale time:: 09:34 1a Level of consciousness: alert-0 1b Level of consciousness questions: answers both correctly-0 1c Level of consciousness commands: obeys both correctly-0 2 Best gaze: normal-0 3 Visual: no visual loss-0 4 Facial palsy: normal-0 5a Motor: left arm: no drift-0 5b Motor: right arm: drift-1 6a Motor: left leg: no drift-0 6b Motor: right leg: no drift-0 7 Limb ataxia: present in one limb-1 8 Sensory: normal-0 9 Best language: no aphasia-0 10 Dysarthria: normal-0 11 Extinction and inattention: no abnormality-0 Level:: 2
[2024-07-25 08:02] LABS: Glucose Point of Care 100 mg/dl (65-105)
--- OUTSIDE RECORDS SUMMARY | 2024-07-25 08:25 | XMS_ITS | Continuity of Care Document ---
Author Organization [facility] [place] [address] [place] [address] Phone Care Team Providers Care Word Processing Specialist Name Role Phone Peng Marks Unavailable Unavailable Procedures Procedure Date Eye Exam & Treatment Refraction Eye Exam & Treatment No Script Refraction Eye Exam & Treatment Refraction Eye Exam & Treatment Visual Functional Status Assessed Refraction Advance Directives Directive Yes / No Effective Date File Name No Information Encounters Encounter Description Practice Location Reason(s) For Visit Diagnoses Date Provider Providers Copied on Encounter [facility], [address] [place] [address] [address], [place], [place], [id number], tel:[phone] [facility] No Information Oct-0 8-201 0 Selina Khoury. [address] , [address], [place], [place], [facility], . tel:[phone] [facility], [id number] [place] [address] [address], [place], [place], [id number], [place] tel:[phone] [facility] No Information Feb-3 0-200 9 Selina Khoury. [address], [address], [place], [place], [facility], . tel:[phone] [facility], [address], [place], [place], [id number], tel:[phone] [facility] [address] No Information 7200 8 Sarthakbruna Edjoel. [address] , [address], [place], [address], [place]. tel:[phone] [facility], [address], [place], [place], [id number], [place] tel:[phone] [facility] No Information 200 7 Selina Khoury. [address] , [address], [place], [address], [place]. tel:[phone] Family History Family Member Type Diagnosis Age At Onset No Information Payers Payer name Insurance type Covered green party ID Authoriza ticiro(s) [place] [id number] [facility] Medicare [facility] CI [id number] Social History Type Description Quantity Date Captured [...]
--- OUTSIDE RECORDS SUMMARY | 2024-07-25 08:25 | XMS_ITS | Continuity of Care Document ---
Author Organization [employer] Address [address] [place] [address] Phone Care Team Providers Care Refrigeration Mechanic Name Role Phone Stanislaw Guzmán MD Unavailable [...] Preservative And A ntibiotic Free IM OFFICE [id number] SYST BP GE 130 - 139MM HG DIAST BP >= 90 MM HG Advance Directives Directive Yes / No Effective Date File Name No Information Encounters Encounter Description Practice Location Reason(s) For Visit Diagnoses Date Provider Providers Copied on Encounter [employer], [address], [place], [place], [address] , [place] tel:[phone] [facility] No Information 5 Ramirez Dover. [address] [place] [address], [address], [place], [place], [address] , . tel: [phone] [employer], [address], [place], [place], [address] , tel: [phone] [facility] Presence of intraocular lens 4 Ramirez Dover. [address] [place] [address], [address], [place], [place], [address] , . tel: [phone] [employer], [address], [place], [place], [address] , tel: [phone] [facility] Medicare preventive (chief complaint)C hronic Conditions (chief complaint)c hronic conditions (chief complaint) Medicare annual wellness visit, subsequentStage 3a chronic kidney diseaseTremorBlurred visionEncounter for immunizationOther seborrheic keratosis 4 Ramirez Dover. [address] [place] [address], [address], [place], [place], [address] , . tel: [phone] Referring Provider: Stanislaw Guzmán, [address] [place] [address] [address], [place], [address] . tel:[phone] [employer], [address], [place], [place], [address] , tel: [phone] [facility] No Information 4 Ramirez Dover. [address] [place] [address], [address], [place], [place], [address] , . tel: [phone] [employer], [address], [place], [place], [address] , tel: [phone] [facility] Encounter for gynecological examination (general) (routine) without abnormal findings 4 Ramirez Dover. [address] [place] [address], [address], [place], [place], [address] , . tel: [phone] [employer], [address], [place], [place], [address] , tel: [phone] [facility] No Information 4 Jac Orellana. [address] [place] [address], [address], [place], [place], [address] , . tel: [phone] [facility], [address], [place], [place], [address] , tel: [phone] [facility] Foreign body sensation, right eye 4 Ramirez Dover. [address] [place] [address], [address], [place], [place], [address] , . tel: [phone] [employer], [address], [place], [place], [address] , tel: [phone] [facility] Medicare preventive (chief complaint)C hronic Conditions (chief complaint)c hronic conditions (chief complaint) Medicare annual wellness visit, subsequentChronic kidney disease, stage 3aTremorOsteopenia, unspecified locationEncounter for immunization 3 Ramirez Dover. [address] [place] [address], [address], [place], [place], [address] , . tel: [phone] Referring Provider: Stanislaw Guzmán, [address] [place] [address] [address], [place], [address] . tel:[phone] [facility], [address], [place], [place], [address] , tel: [phone] [facility] Presence of intraocular lens 3 Ramirez Dover. [address] [place] [address], [address], [place], [place], [address] , . tel: [phone] [employer], [address], [place], [place], [address] , [place] tel: [phone] [facility] No Information 3 Ramirez Dover. [address] [place] [address], [address], [place], [place], [address] , . tel: [phone] [employer], [address], [place], [place], [address] , tel: [phone] [facility] No Information 3 Ramirez Dover. [address] [place] [address], [address], [place], [place], [address] , . tel: [phone] [employer], [address], [place], [address] , [place] tel: [phone] [facility] No Information 3 Ramirez Dover. [address] [place] [address], [address], [place], [place], [address] , [place]. tel: [phone] [facility], [address], [place], [place], [address] , [place] tel: [phone] [facility] Encounter for gynecological examination (general) (routine) with abnormal findings 3 Ramierz Dover. [address] [place] [address], [address], [place], [place], [address] , [place]. tel: [phone] [employer], [address], [place], [place], [address] , [place] tel: [phone] [facility] Other seborrheic keratosis 3 Ramirez Dover. [address] [place] [address], [address], [place], [place], [address] , [place]. tel: [phone] [employer], [address], [place], [address] , [place] tel: [phone] [facility] No Information 2 Ramirez Dover. [address] [place] [address], [address], [place], [place], [address] , [place]. tel: [phone] [facility], [address], [place], [place], [address] , [place] tel: [phone] [facility] Medicare preventive (chief complaint)C hronic Conditions (chief complaint) Medicare annual wellness visit, subsequentTremorOste openia, unspecified location 2 Ramirez Dover. [address] [place] [address], [address], [place], [place], [address] , [place]. tel: [phone] Referring Provider: Stanislaw Guzmán, [address] [place] [address] [address], [place], [address] . tel:[phone] [facility], [address], [place], [address] , [place] tel: [phone] [facility] No Information [address] [facility], [address], [place], [address] , [place]. tel: [phone] [employer], [address], [place], [place], [address] , [place] tel: [phone] [facility] Pseudophakia 2 Ramirez Dover[address] [place] [address], [address], [place], [place], [address] , [place]. tel: [phone] [facility], [address], [place], [address] , [place] tel: [phone] [facility] No Information [address] [facility], [address], [place], [place], [address] , [place]. tel: [phone] [facility], [address], [place], [place], [address] , tel: [phone] [facility] No Information 2 Sigourney Reyn[address]. [address] [place] [address], [address], [place], [place], [address] , [place]. tel: [phone] [facility], [address], [place], [place], [address] , [place] tel: [phone] [facility] Tremor, unspecified 1 Ramirez Dover. [address] [place] [address], [address], [place], [place], [address] , . tel: [phone] [facility], [address], [place], [address] , [place] tel: [phone] [facility] Medicare preventive (chief complaint)C hronic Conditions (chief complaint) Medicare annual wellness visit, subsequentTremor 1 Ramirez Dover. [address] [place] [address], [address], [place], [place], [address] , . tel: [phone] Referring Provider: Stanislaw Guzmán, [address] [place] [address] [address], [place], [address] . tel:[phone] [facility], [address], [place], [place], [address] , [place] tel: [phone] [facility] No Information 1 Ramirez Dover. [address] [place] [address], [address], [place], [place], [address] , . tel: [phone] [facility], [address], [place], [place], [address] , tel: [phone] [facility] Unspecified visual disturbance 1 Ramirez Dover. [address] [place] [address], [address], [place], [place], [address] , [place]. tel: [phone] [facility], [address], [place], [address] , [place] tel: [phone] [facility] Other seborrheic keratosis 1 Ramirez Dover. [address] [place] [address], [address], [place], [place], [address] , . tel: [phone] [facility], [address], [place], [address] , tel: [phone] [facility] Encounter for gynecological examination (general) (routine) without abnormal findings 1 Ramirez Dover. [address] [place] [address], [address], [place], [place], [address] , . tel: [phone] [facility], [address], [place], [address] , [place] tel: [phone] [facility] No Information 0 Ramirez Dover. [address] [place] [address], [address], [place], [address] , [place]. tel: [phone] [facility], [address], [place], [address] , [place] tel: [phone] [facility] Medicare preventive (chief complaint)C hronic Conditions (chief complaint) Medicare annual wellness visit, subsequentTremorPrim sandra osteoarthritis involving multiple joints 0 Ramirez Dover. [address] [place] [address], [address], [place], [place], [address] , . tel: [phone] Referring Provider: Stanislaw Guzmán, [address], [place], [address] [place] [address] . tel:[phone] OFFICE ALNCT-VLU-CJ PANDED [facility], [address], [place], [place], [address] , tel: [phone] [facility] Chronic Conditions (chief complaint) TremorDiarrhea, unspecified typeEncounter for immunization 9 Ramirez Dover. [address] [place] [address], [address], [place], [place], [address] , . tel: [phone] Referring Provider: Stanislaw Guzmán, [address] [place] [address] [address], [place], [address] [place] [address] . tel:[phone] [facility], [address], [place], [place], [address] , tel: [phone] [facility] TremorBalance disorderVision changesEncounter for immunization 8 Ramirez Dover. [address] [place] [address], [address] , [place], [place], [address] , . tel: [phone] Referring Provider: Stanislaw Guzmán, [address] [place] [address] [address], [place], [address] [place] [address] . tel:[phone] [facility], [address], [place], [address] , tel: [phone] [facility] Essential tremorAlopeciaDysuri aHyperlipidemia, unspecified hyperlipidemia type 7 Ramirez Dover. [address] [place] [address], [address], [place], [place], [address] , . tel: [phone] Referring Provider: Stanislaw Guzmán, [address] [place] [address] [address], [place], [address] [place] [address] . tel:[phone] [facility], [address], [place], [place], [address] , tel: [phone] [facility] Essential tremorOsteopenia Sep-0 5 Ramirez Dover. [address] [place] [address], [address], [place], [place], [address] , . tel: [phone] Referring Provider: Stanislaw Guzmán, [address] [place] [address] [address], [place], [address] [place] [address] . tel:[phone] [facility], [address], [place], [place], [address] , tel: [phone] [facility] No Information 4 Ramirez Dover. [address] [place] [address], [address] , [place], [address] [place] [address] , . tel: [phone] [facility], [address], [place], [address] [place] [address] , tel: [phone] [facility] Essential tremorOsteopeniaElev ated blood pressureBreast cancer screening 4 Ramirez Dover. [address] [place] [address], [address] , [place], [address] [place] [address] , . tel: [phone] Referring Provider: Stanislaw Guzmán, [address] [place] [address] [address] , [place], [address] [place] [address] . tel:[phone] [facility], [address], [place], [address] [place] [address] , tel: [phone] [facility] No Information 3 Ramirez Dover. [address] [place] [address], [address] , [place], [address] [place] [address] , . tel: [phone] [facility], [address], [place], [address] , tel: [phone] [facility] Disorder of bone and cartilage, unspecifiedEssential and other specified forms of tremorElevated blood pressure 3 Ramirez Dover. [address] [place] [address], [address] , [place], [address] [place] [address] , . tel: [phone] Referring Provider: Stanislaw Guzmán, [address] [place] [address] [address] , [place], [address] [place] [address] . tel:[phone] Family History Family Member Type Diagnosis Age At Onset Brother Problem (finding) Spina bifida Father Problem (finding) malignant neoplasm of p ancreas Immunizations Vaccine Date Status Comments Fluzone High-Dose Trivalent, preservative free administered Note: aury Mahajan ce: Other Provider Lumi [place] Comirnaty COVID vacci ne, petros-sucrose, 30mcg/0.3mL dose, [...] Record Payers Payer name Insurance type Covered democrat ID Authoriza tion(s) [employer] [id number] MEDICARE MB [id number] AARP MDCR SUPPLEMENT ONLY CI [id number] MEDICARE MB [id number] AARP MDCR SUPPLEMENT ONLY CI [id number] MEDICARE MB [id number] AARP MDCR SUPPLEMENT ONLY CI [id number] MEDICARE MB [id number] AARP MDCR SUPPLEMENT ONLY CI [id number] Social History Type Description Quantity Date Captured Comments Sex Female Smoking Status No Information Chief Complaint And Reason For Visit No Information Reason For Referral Reason For Referral No Information Plan Of Treatment Date Type Action Status Referral Referred To: Zaira Mcdowell [address] [facility]
[id number] [place], [place], [phone] Ordered: Referrals: Obstetrics and Gynecology. Zaira Mcdowell. Evaluation/diagnostic/treatment - Level 3 Appointment date/timeframe: 04/22/2024 ordered Referral Referred To: Julieta Dean MD [address] [facility] [phone] Ordered: Referrals: Filler Room Attendant. Julieta Dean MD. Evaluation/diagnostic/treatment - Level 3 Appointment date/timeframe: 11/17/2023 ordered Referral Referred To: Merissa Crocker [address] [place], [phone] Ordered: Referrals: Ophthalmology. Merissa Crocker. Evaluation/diagnostic/treatment - Level 3 Appointment date/timeframe: 04/28/2023 ordered Referral Referred To: Jojo Siddiqui MD Ordered: Referrals: Gynecology. Jojo Siddiqui MD. Evaluation/diagnostic/treatment - Level 3 Appointment date/timeframe: 12/04/2022 ordered Referral Referred To: Celia Arenas [address] [place], [phone] Ordered: Referrals: Neurology. Celia Arenas. Evaluation/diagnostic/treatment - Level 3 Appointment date/timeframe: 04/30/2021 ordered Referral Referred To: Gennaro Meng [address] [place], [place], [phone] Ordered: Referrals: Ophthalmology. Gennaro Meng. Evaluation/diagnostic/treatment - Level 3 Appointment date/timeframe: 02/08/2021 ordered Referral Referred To: Beth Villafana [address]
[facility],[address] [place], [phone] Ordered: Referrals: Dermatology. Beth Villafana. Evaluation/diagnostic/treatment - Level 3 Appointment date/timeframe: 01/30/2021 ordered Referral Referred To: Alana Souza [address]
[id number] [place], [place], [phone] Ordered: Referrals: Obstetrics and Gynecology. Alana Souza. [...] No Information Instructions Date Instruction Additional Infor matmaurice Get the Shingrix. Related to Enc ounter for immunization Labs next time. Related to Stage 3a chronic kidney disease Continue current med ications for now. Related to Tremor No new recommendations. Related to Blurred vision Get appropriate vacc cindy. Return 1 year Related to Medicare annual wellness visit, subsequent Disease process Get Shingrix. Related to Encou nter for immunization Continue current med ications for now. Related to Tremor Recheck level. Related to Osteo penia, unspecified location Check CMP and PTH. Related to Ch ronic kidney disease, stage 3a Get appropriate vacc cindy. Return 1 year [...] d to Medicare annual wellness visit, subsequent Fall Risk Prevention Urinary Incontinence Disease process No new recommendations. 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 Related to Tremor Get appropriate vaccines. Relate d to Medicare annual wellness visit, subsequent Counseled on dietary changes Urinary Incontinence Fall Risk Prevention Disease process Counseled on weight reduction I do not think it is due to the betablocker, monitor and call if persists. Related to Diarrhea, unspecified type Advised she can incr ease her propranolol anytime she wants. Related to Tremor Urinary Incontinence Disease process Fall Risk Prevention Assessments Type Assessment Date No Information Patient Care Teams Name Effective Dates (start - stop) Status Members No Information
--- OUTSIDE RECORDS SUMMARY | 2024-07-25 08:25 | XMS_ITS | Referral Summary ---
Author Organization [facility] Address [address] [place] [address] Care Team Providers Care Feller Seam Operator Name Role Phone Stanislaw Guzmán MD Primary Care Provider Encounters Date Type Department Care Team Description 05/17/2024 Telephone [facility] Ophthalmology [address] [place] [phone] Dionisio Flannery BEber 05/17/2024 10:15 AM WEB SOLUTIONS ARCHITECT Office Visit [facility] Ophthalmology [address] [place] [phone] Merissa Crocker MD PhD Pseudophakia of both eyes 05/11/2024 11:00 AM WEB SOLUTIONS ARCHITECT Office Visit [facility] Dermatology [address] [place] [address] [place] [phone] Beth Villafana MD Lentigines (Primary Dx); Other [...] 04/28/2020 Assessment & Plan (04/30/2021 10:41 AM WEB SOLUTIONS ARCHITECT): Ms. Renee Lamar is a 81 y.o. [...] encounter. Assessment & Plan (04/28/2020 2:40 PM WEB SOLUTIONS ARCHITECT): Ms. Renee Lamar is a 80 y.o. [...] (12/21/2018): Added automatically from request for surgery [id number] Nuclear sclerotic cataract of right eye 10/13/2018 12/15/2018 Overview (10/13/2018): Added automatically from request for surgery [id number] Assessment & Plan (12/15/2018 3:21 PM CDT): [...] on file Legal Sex Female 4:01 AM WEB SOLUTIONS ARCHITECT Gender Identity Female 04/22/2020 11:26 AM WEB SOLUTIONS ARCHITECT Sexual Orientation Not on file Occupation Industry Job Start Date Job End Date Retire Not on file Not on file Not on file Last Filed Vital Signs Vital Sign Reading Time Taken Comments Blood Pressure 193/80 04/22/2024 8:49 AM WEB SOLUTIONS ARCHITECT Pulse 68 12/04/2022 10:21 AM CDT Temperature 36.6 C (97.9 F) 04/30/2021 10:02 AM WEB SOLUTIONS ARCHITECT Respiratory Rate 14 12/23/2018 3:40 PM CDT Oxygen Saturation 98% 12/23/2018 3:55 PM CDT Inhaled Oxygen Concentration - - Weight 57.1 kg (125 lb 12.8 oz) 04/22/2024 8:49 AM WEB SOLUTIONS ARCHITECT Height 154.9 cm (5' 1 ) 04/22/2024 8:49 AM WEB SOLUTIONS ARCHITECT Body Mass Index 23.77 04/22/2024 8:49 AM WEB SOLUTIONS ARCHITECT Plan of Treatment Not on file Medical Devices Implanted Type Area Event Attendant Device Identifier Shelf Expiration Date Model / Serial / Lot [place] [employer] [id number] 21.0 Tecnis Optiedge 6mm 13mm 3 Piece Anterior Aspheric Monofocal Uv - [id number] - [id number] Implanted:Qty: 1 on 11/18/2018 by Shahbaz Hernandez MD at [facility] Advanced [facility] Lens Left: Eye [place] [employer] [id number] 04/26/2021 [id number] 21.0 / [id number] 1 / 0 [employer] Sa60at.225 Acrysof Stableforce 6mm 13mm 1 Piece Foldable Anterior Asymmetric - [id number] - [id number] Implanted:Qty: 1 on 12/23/2018 by Gennaro Meng MD at [facility] Advanced Medicine Right: Eye [employer] [id number] 04/08/2020 SA60AT.22 5 / [id number] / Insurance [facility] Care Teams Feller Seam Operator Relationship Specialty Start Date [place]law Guzm[place] [address] [address] PCP - General Internal Medicine 11/22/22
--- OUTSIDE RECORDS SUMMARY | 2024-07-25 08:26 | XMS_ITS | Clinical Summary ---
Author Organization [facility] Address [address] [place] [address] Care Team Providers Care Filterer Name Role Phone Stanislaw Guzmán MD Primary Care Provider [phone] Allergies No known active allergies Medications propranolol [...] 04/28/2020 Assessment & Plan (04/30/2021 10:41 AM GEOLOGIST): Ms. Renee Lamar is a 81 y.o. [...] encounter. Assessment & Plan (04/28/2020 2:40 PM GEOLOGIST): Ms. Renee Lamar is a 80 y.o. [...] (12/21/2018): Added automatically from request for surgery [id number] Nuclear sclerotic cataract of right eye 10/13/2018 12/15/2018 Overview (10/13/2018): Added automatically from request for surgery [id number] Assessment & Plan (12/15/2018 3:21 PM CDT): [...] Department Care Team Description 05/17/2024 10:15 AM GEOLOGIST Office Visit [facility] Ophthalmology [address] [place] [address] [place] [address] [phone] Merissa Crocker MD PhD Pseudophakia of both eyes 05/17/[address] [facility] Ophthalmology [address] [place] [address] [phone] Dionisio Flannery, B.A. 05/11/2024 11:00 AM GEOLOGIST Office Visit [facility] Dermatology [address] [place] [address] [address] [place] [phone] Beth Villafana MD Lentigines (Primary Dx); Other [...] on file Legal Sex Female 4:01 AM GEOLOGIST Gender Identity Female 04/22/2020 11:26 AM GEOLOGIST Sexual Orientation Not on file Occupation Industry [...] Comments Blood Pressure 193/80 04/22/2024 8:49 AM GEOLOGIST Pulse 68 12/04/2022 10:21 AM CDT Temperature 36.6 C (97.9 F) 04/30/2021 10:02 AM GEOLOGIST Respiratory Rate 14 12/23/2018 3:40 PM CDT Oxygen Saturation 98% 12/23/2018 3:55 PM CDT Inhaled Oxygen Concentration - - Weight 57.1 kg (125 lb 12.8 oz) 04/22/2024 8:49 AM GEOLOGIST Height 154.9 cm (5' 1 ) 04/22/2024 8:49 AM GEOLOGIST Body Mass Index 23.77 04/22/2024 8:49 AM GEOLOGIST Plan of Treatment Health Maintenance Due Date [...] history exists Medical Devices Implanted Type Area Support Director Device Identifier Shelf Expiration Date Model / Serial / Lot [employer] [id number] 21.0 Tecnis Optiedge 6mm 13mm 3 Piece Anterior Aspheric Monofocal Uv - [id number] - [id number] Implanted:Qty: 1 on 11/18/2018 by Shahbaz Hernandez MD at [facility] Lens Left: Eye [employer] [id number] 04/26/2021 [id number] 21.0 / [id number] 1 / 0 [employer] Sa60at.225 Acrysof Stableforce 6mm 13mm 1 Piece Foldable Anterior Asymmetric - [id number] - [id number] Implanted:Qty: 1 on 12/23/2018 by Gennaro Meng MD at [facility] Advanced Medicine Right: Eye [employer] [id number] 04/08/2020 SA60AT.22 / [id number] / Insurance [facility] Member Subscriber Plan / Payer (Ef fective 2020-Present) Name:Lamar, Lyn Relation to Subscriber:Self Name:Renee Lamar Payer ID:[id number] (NAIC) Type:MEDICARE RISK OTHER Address: [address] [place] [id number] Care Teams Filterer Relationship Specialty Start Date [place]law Guzm[place] [address] [place] [address] [address] [place] [address] PCP - General Internal Medicine 11/22/22
[2024-07-25 08:28] LABS: Alanine Aminotransferase 17 U/L (6-35); Albumin Level 4.2 g/dL (3.5-5.1); Alkaline Phosphatase 66 U/L (38-126); Anion Gap 7 mmol/L (4-12); Bilirubin,Total 0.7 mg/dL (0.2-1.3); Calcium 9.3 mg/dL (8.4-10.2); Carbon Dioxide 28 mmol/L (22-30); Chloride 103 mmol/L (98-107); Estimated CRCL calculation 28 ml/min; Estimated Glomerular Filt Rate 50; Glucose 108 mg/dL (65-110); Potassium 4.2 mmol/L (3.4-5.0); Sodium 138 mmol/L (137-145)
[2024-07-25 08:38] LABS: Troponin I < 0.012 ng/mL (0.000-0.034)
[2024-07-25 08:44] LABS: Prothrombin Time 13.2 Seconds (11.1-14.7)
[2024-07-25] MEDS: hydrALAZINE HCL 20 MG/ML VIAL 10 MG IV PUSH (08:55)
[2024-07-25 08:58] LABS: Aspartate Amino Transferase 27 U/L (14-36); Blood Urea Nitrogen 20 mg/dL (7-17)
[2024-07-25 09:39] LABS: Basophils Absolute Auto 0.1 K/mm3 (0.0-0.1); Basophils Percent Auto 0.9 % (0.2-1.2); Eosinophils Absolute Auto 0.2 K/mm3 (0-0.3); Eosinophils Percent Auto 2.8 % (0-4.4); Hematocrit 42.9 % (37.0-47.0); Hemoglobin 13.9 g/dL (12.0-15.0); Immature Granulocyte Absolute 0.01 K/mm3 (0.00-0.031); Immature Granulocyte Percent A 0.1 % (0-0.5); Lymphocytes Percent Auto 27.6 % (18.3-44.2); Mean Corpuscular HGB Conc 32.4 g/dl (32-36); Mean Corpuscular Hemoglobin 28.2 pg (26-34); Mean Platelet Volume 11.1 fl (7.4-10.4); Monocytes Absolute Auto 0.5 K/mm3 (0.1-0.6); Monocytes Percent Auto 6.7 % (2.6-8.5); Neutrophils Absolute Auto 4.3 K/mm3 (1.3-6.7); Neutrophils Percent Auto 61.9 % (45.5-73.1); Platelet Count Result 192 k/mm3 (150-375); Red Blood Count 4.93 M/mm3 (4.2-5.4); Red Cell Distribution Width 14.3 % (11.5-14.5); White Blood Count 6.9 K/mm3 (4.5-10.0)
[2024-07-25 09:56] LABS: Glucose Point of Care 99 mg/dl (65-105)
[2024-07-25] MEDS: ASPIRIN 325 MG TABLET PO (10:50)
[2024-07-25] MEDS: CLOPIDOGREL BISULFATE 300 MG TABLET PO (10:50)
--- NOTE | 2024-07-25 10:55 | PC.NURSE ---
Pt able to swallow liquid and PO medications.
--- NOTE | 2024-07-25 11:05 | PC.NURSE ---
bed received [facility] 273* Dr Klein
== END 2024-07-25 11:13 | disposition short-term general hospital (02) ==
PROVIDERS: Emergency Provider Emergency Medicine; PCP Internal Medicine
DX: I63.9 Cerebral infarction, unspecified (principal); R29.704 NIHSS score 4; G25.0 Essential tremor; Z90.710 Acquired absence of both cervix and uterus; R00.1 Bradycardia, unspecified; R94.31 Abnormal electrocardiogram [ECG] [EKG]
CPT/HCPCS: 36415; 70450; 70496; 70498; 71045; 80053; 82948; 84484; 85025; 85610; 85730; 93005; 96374; 99285; A9270; J0360; Q9967